=== PATIENT | male | born 1975 | race Caucasian/White ===

== ENCOUNTER 2017-11-14 16:01 | Emergency (ER) | payer SELFPAY ==
[~2017-11-14] VITALS: Ht 190.5 cm; Wt 181.4 kg
[~2017-11-14 16:01] MED LIST: ATEN100T PO; BENA20TA9 PO
--- NOTE | 2017-11-14 16:10 | NUR ---
PT PRESENTED TO THE ER WITH A C/O MID STERNAL CP. PT STATED THAT IT FEELS LIKE TIGHTNESS AND HAS MORE DISCOMFORT WITH INSPIRATION. PT STATED THAT IT STARTED 1 HR DOCK HAND. PT IS ALSO C/O LUE ARM PAIN X 1 HR. PT IS ON THE MONITOR AND CONTINUOUS PULSE OX.
[2017-11-14 16:55] LABS: BASOPHILS # (AUTO) 0.1 /CMM (0.0-0.2); BASOPHILS % (AUTO) 0.7 % (0.0-2.0); EOSINOPHILS % (AUTO) 2.8 % (0.0-6.0); HEMATOCRIT 50 % (39-51); HEMOGLOBIN 17.8 g/dL (13.5-17.5); LYMPHOCYTES # (AUTO) 2.9 /CMM (0.8-4.8); LYMPHOCYTES % (AUTO) 29.3 % (20.0-44.0); MEAN CORPUSCULAR HGB CONC 36 g/dl (31.0-36.0); MEAN CORPUSCULAR VOLUME 88 fL (80-96); MONOCYTES # (AUTO) 1.1 /CMM (0.1-1.30); MONOCYTES % (AUTO) 10.6 % (2.0-12.0); NEUTROPHILS # (AUTO) 5.6 /CMM (1.8-8.9); NEUTROPHILS % (AUTO) 56.6 % (43.0-81.0); PLATELET COUNT (AUTO) 255 /CMM (150-450); RDW COEFFICIENT OF VARIATION 12.9 (11.5-15.0); RED BLOOD CELL COUNT(AUTO) 5.65 MIL/uL (4.5-6.0)
[2017-11-14 17:04] LABS: CALCIUM, SERUM 8.8 mg/dL (8.5-10.1); CARBON DIOXIDE 27 mmol/L (21-32); CHLORIDE 99 mmol/L (98-107); CREATININE 1.1 mg/dL (0.6-1.3); GLUCOSE 94 mg/dL (74-106); SODIUM SERUM 135 mmol/L (136-145); UREA NITROGEN, BLOOD 15 mg/dL (7-18)
[2017-11-14 17:08] LABS: INR 0.93 (0.85-1.15)
[2017-11-14 17:10] LABS: ALANINE AMINOTRANSFERASE 39 U/L (12-78); ALBUMIN 3.8 g/dL (3.4-5.0); ALKALINE PHOSPHATASE 47 U/L (46-116); ASPARTATE AMINOTRANSFERASE 27 U/L (15-37); BILIRUBIN,TOTAL 0.2 mg/dL (0.2-1.0); TOTAL PROTEIN, SERUM 8.4 g/dL (6.4-8.2)
[2017-11-14] MEDS ORDERED: NITROGLYCERIN PACKET 1 GM PACKET ONE (17:10)
[2017-11-14] MEDS ORDERED: ENALAPRILAT DIHYD. (2.5MG/ML) 1.25 MG/ML VIAL IV ONE ×2 (17:10→17:30)
[2017-11-14] MEDS ORDERED: ASPIRIN 325 MG TABLET ONE (17:10)
[2017-11-14 17:14] LABS: TROPONIN I < 0.017 ng/mL (0.00-0.056)
[2017-11-14] MEDS ORDERED: NITROGLYCERIN PACKET 1 GM PACKET TD ONE (17:30)
[2017-11-14] MEDS ORDERED: ASPIRIN 325 MG TABLET PO ONE (17:30)
--- NOTE | 2017-11-14 18:24 | NUR ---
IV removed. Catheter intact and site benign. Pressure and 4x4 applied to site. No bleeding noted.Patient discharged to home in stable condition. Written and verbal after care instructions given. Patient verbalizes understanding of instruction AND RX. PT'S VSS. PT AMBULATED OUT WITH A STEADY GAIT. PT'S IS DRIVING PT HOME.
[2017-11-14 18:25] VITALS: BP 133/88
== END 2017-11-14 18:30 | disposition home or self-care (01) ==
LOC: ER 16:06
DX: R07.89 Other chest pain (principal); I10 Essential (primary) hypertension
CPT/HCPCS: 36415; 71045-TC; 80048-TC; 80076-TC; 84484-TC; 85025-TC; 85730-TC; A4606; J3490; Z7610

== ENCOUNTER 2017-12-05 07:03 | Emergency (ER) | payer MEDICAID ==
[~2017-12-05] VITALS: Ht 193 cm; Wt 174.6 kg
[2017-12-05 07:08] VITALS: BP 213/142
== END 2017-12-05 07:48 | disposition home or self-care (01) ==
LOC: ER 07:05
DX: I10 Essential (primary) hypertension (principal)
CPT/HCPCS: A4606; Z7610

== ENCOUNTER 2018-06-28 18:43 | Emergency (ER) | payer SELFPAY ==
--- NOTE | 2018-06-28 19:14 | NUR ---
CALLED IN [facility], NO RESPONSE
--- NOTE | 2018-06-28 19:29 | NUR ---
CALLED IN [facility], NO RESPONSE
--- NOTE | 2018-06-28 19:41 | NUR ---
CALLED IN [facility], NO RESPONSE
--- NOTE | 2018-06-28 19:54 | NUR ---
CALLED PT IN [facility], PT STATES "NO IT'S ALRIGHT, THANK YOU" DECLINES TRIAGE ASSESSMENT OR ER PROVIDER EVALUATION.
== END 2018-06-28 19:55 | disposition home or self-care (01) ==
LOC: ER 18:45
DX: Z53.21 Procedure and treatment not carried out due to patient leaving prior to being seen by health care provider (principal)

== ENCOUNTER 2022-07-04 03:57 | Inpatient (IN) | payer MEDICAID ==
[~2022-07-04] VITALS: Ht 193 cm; Wt 204.1 kg
[2022-07-04 05:00] LABS: BASOPHILS # (AUTO) 0.1 K/uL (0.0-0.2); BASOPHILS % (AUTO) 0.6 % (0.0-2.0); EOSINOPHILS % (AUTO) 5.7 % (0.0-6.0); HEMATOCRIT 48 % (39-51); HEMOGLOBIN 15.8 g/dL (13.5-17.5); LYMPHOCYTES # (AUTO) 1.7 K/uL (0.8-4.8); LYMPHOCYTES % (AUTO) 13.1 % (20.0-44.0); MEAN CORPUSCULAR HGB CONC 33 g/dl (31.0-36.0); MEAN CORPUSCULAR VOLUME 90 fL (80-96); MONOCYTES % (AUTO) 7.3 % (2.0-12.0); NEUTROPHILS # (AUTO) 9.6 K/uL (1.8-8.9); NEUTROPHILS % (AUTO) 73.3 % (43.0-81.0); PLATELET COUNT (AUTO) 231 K/uL (150-450); WHITE BLOOD COUNT (AUTO) 13.1 K/uL (4.3-11.0)
[2022-07-04 05:12] LABS: CALCIUM, SERUM 8.4 mg/dL (8.5-10.1); CREATININE 1.2 mg/dL (0.6-1.3); POTASSIUM 3.6 mmol/L (3.5-5.1)
[2022-07-04 05:26] LABS: ALBUMIN 3.1 g/dL (3.4-5.0); BILIRUBIN,TOTAL 0.6 mg/dL (0.2-1.0); TOTAL PROTEIN, SERUM 6.9 g/dL (6.4-8.2)
[2022-07-04] MEDS ORDERED: FUROSEMIDE 40 MG/4 ML VIAL IV ONE (06:00)
[2022-07-04] MEDS ORDERED: ONDANSETRON HCL/PF 4 MG/2 ML VIAL IM ONE (06:00)
[2022-07-04] MEDS ORDERED: ONDANSETRON HCL/PF 4 MG/2 ML VIAL ONE (06:04)
[2022-07-04] MEDS ORDERED: FUROSEMIDE 40 MG/4 ML VIAL ONE (06:04)
[2022-07-04] MEDS ORDERED: NITROGLYCERIN PATCH 0.2 MG/HR PATCH.TD24 TD SCH (06:30)
--- NOTE | 2022-07-04 07:15 | NUR ---
[facility] SWAB COLLECTED AND SENT TO LAB. PATIENT'S BELONGINGS LIST DONE.
--- NOTE | 2022-07-04 07:15 | NUR ---
RECEIVED PT FROM [facility] NO SOB OR CHEST PAIN
--- NOTE | 2022-07-04 08:05 | NUR ---
MOVE SHEET SUBMITTED
[2022-07-04] MEDS ORDERED: ATENOLOL 50 MG TABLET PO ONE (09:00)
[2022-07-04] MEDS ORDERED: BENAZEPRIL HCL 10 MG TABLET PO ONE (09:00)
[2022-07-04] MEDS ORDERED: ATENOLOL 50 MG TABLET ONE (09:55)
[2022-07-04] MEDS ORDERED: BENAZEPRIL HCL 10 MG TABLET ONE (09:56)
[2022-07-04] MEDS ORDERED: hydrALAZINE HCL 50 MG TABLET ONE (10:18)
[2022-07-04] MEDS ORDERED: ENOXAPARIN SODIUM 40 MG/0.4 ML DISP.SYRIN SQ ONE (10:18)
[2022-07-04] MEDS ORDERED: FUROSEMIDE 100 MG/10 ML VIAL ONE (10:18)
[2022-07-04] MEDS ORDERED: BENAZEPRIL HCL 20 MG TABLET ONE (10:19)
[2022-07-04] MEDS ORDERED: ASPIRIN EC 81 MG TABLET.DR PO ONE (10:19)
[2022-07-04 10:22] LABS: THYROID STIMULATING HORMONE 1.489 uIU/mL (0.358-3.74)
[2022-07-04] MEDS ORDERED: MORPHINE SULFATE INJ 4 MG/ML DISP.SYRIN IM PRN (10:30)
[2022-07-04] MEDS ORDERED: hydrALAZINE HCL IV 20 MG VIAL IV PRN (10:30)
[2022-07-04] MEDS: FUROSEMIDE 100 MG/10 ML VIAL IV SCH ×3 (10:53→17:15)
[2022-07-04] MEDS: hydrALAZINE HCL 50 MG TABLET PO SCH ×3 (10:55→16:16)
[2022-07-04] MEDS: BENAZEPRIL HCL 20 MG TABLET PO SCH (10:55)
[2022-07-04] MEDS: ASPIRIN 81 MG TAB.CHEW PO SCH (10:55)
[2022-07-04] MEDS: ENOXAPARIN SODIUM 40 MG/0.4 ML DISP.SYRIN SQ SCH (10:58)
--- NOTE | 2022-07-04 11:00 | NUR ---
RINKU C/O SOB FOR THE PAST FEW DAYS FELT WORSE THIS AM.
--- NOTE | 2022-07-04 12:04 | NUR ---
Room Assigned 108-1
--- NOTE | 2022-07-04 12:17 | NUR ---
REPORT GIVEN TO GIANFRANCO TORRES RN ROOM 108 FOR SADIA
--- NOTE | 2022-07-04 12:35 | NUR ---
TELE ADMISSION RN NOTES RECEIVED PATIENT FROM ED VIA DAVID, AT THE BEDSIDE, ALERT AND VERBALLY RESPONSIVE, PATIENT C/O OF PAIN AT THE IV SITE ON LEFT AC,REMOVED IV LINE DUE TO NOT FLUSHING, WILL REINSERT A NEW ONE. NOTED SOB, ON 4L 02 VIA NASAL CANNULA SATING AT 97%, PATIENT PREFERRED TO SIT ON HIGH FOWLERS POSITION. NOTED RLE +3 PITTING EDEMA, AND LLE +2 PITTING EDEMA. NOTED RED RASHES ON RIGHT LOWER LEG, NO DRAINAGE NOTED, NOT ITCHY. PATIENT ABLE TO AMBULATE TO THE BATHROOM. PLACED TELE MONITOR NOTED WITH READING OF SR HR 73. ORIENTED TO THE USE OF CALL LIGHT, BED IN LOWEST POSITION. CALL LIGHT WITHIN REACH. ORDERED LUNCH FOR THE PATIENT. PLAN OF CARE CONTINUE.
[2022-07-04] MEDS: ACETAMINOPHEN 650 MG/20.3 ML UDC NG PRN (13:02)
[2022-07-04] MEDS: METOPROLOL TARTRATE 50 MG TABLET PO SCH ×2 (13:03→17:49)
--- NOTE | 2022-07-04 13:53 | NUR ---
PATIENT C/O OF HEADACHE PRN TYLENOL GIVEN. NOTED BP 158/75, DUE HYDRALAZINE AND METOPROLOL GIVEN. BLE ELEVATED WITH PILLOWS. PLAN OF CARE CONTINUE.
--- NOTE | 2022-07-04 15:22 | NUR ---
PATIENT C/O OF NAUSEA, NO VOMITING NOTED, NO C/O OF HEADACHE, NO C/O OF CHEST PAIN AT THIS MOMENT. BP 123/73 HR 76, INFORMED DR. COVINGTON WITH ORDER ZOFRAN 4MG Q4HR PRN, NOTED AND CARRIED OUT. PLAN OF CARE CONTINUE.
[2022-07-04] MEDS: ONDANSETRON HCL/PF 4 MG/2 ML VIAL IV PRN (16:15)
[2022-07-04 17:00] VITALS: BP 127/73
--- NOTE | 2022-07-04 18:40 | NUR ---
PATIENT COMPLAINED OF HEADACHE AND NAUSEA EVEN AFTER GIVING TYLENOL AND ZOFRAN, GIVEN ICE CHIPS AND ENCOURAGED TO SIT UPRIGHT, STILL C/O OF HEADACHE AND NAUSEA,DENIES CHEST PAIN. NOTIFIED DOCTOR ADRIA WITH NEW ORDER TO D/C NITROPATCH, MYLANTA 10ML Q6HR PRN, NOTED AND CARRIED OUT.
--- NOTE | 2022-07-04 18:48 | NUR ---
TELE CLOSING RN NOTES PATIENT NOTED SLEEPING IN BED, ALERT AND VERBALLY RESPONSIVE WHEN AWAKEN, ON 2L 02 VIA NASAL CANNULA SATING AT 97%, BLE PITTING EDEMA STILL NOTED. NOTED RED RASHES ON RIGHT LOWER LEG, NO DRAINAGE NOTED, NOT ITCHY. PATIENT ABLE TO AMBULATE TO THE BATHROOM. PLACED TELE MONITOR NOTED WITH READING OF SR HR 75.OUTPUT IS 1150ML YELLOW URINE. USES THE URINAL. BED IN LOWEST POSITION. CALL LIGHT WITHIN REACH.WILL ENDORSE TO NIGHT NURSE FOR SADIA.
[2022-07-04] MEDS ORDERED: MAG HYDROX/AL HYDROX/SIMETH 30 ML UDC PO PRN (19:00)
--- NOTE | 2022-07-04 19:30 | NUR ---
SUPERVISOR DRYING AND WINDING OPENING NOTES - RECEIVED PATIENT ASLEEP, EASY TO AROUSE. BED IN HIGH CASTREJON'S. A/O X4. BREATHING EVEN AND NON-LABORED, ON HUMIDIFIED O2 AT 2LPM VIA NASAL CANULA. NOT IN APPARENT DISTRESS. DENIES PAIN AT THIS TIME. ON TELE MONITOR READING SINUS RHYTHM AT 75 BPM. HAS RIGHT HAND IV ACCESS #22G AND SALINE LOCKED. NO S/S OF INFILTRATION NOTED. SAFETY PRECAUTIONS IN PLACE: BED LOCKED AND IN LOW POSITION, SIDE RAILS UP X2, CALL LIGHT WITHIN REACH. WILL CONTINUE PLAN OF CARE.
[2022-07-04 20:00] VITALS: BP 145/70
[2022-07-05] VITALS: BP 112/71
[2022-07-05] MEDS: METOPROLOL TARTRATE 50 MG TABLET PO SCH ×4 (00:18→18:00)
--- NOTE | 2022-07-05 00:20 | NUR ---
NOTIFIED HOSPITALIST LA THAT PATIENT HAS NO ADMISSION ORDERS YET. AWAITING FOR MD ORDER.
[2022-07-05 04:00] VITALS: BP 139/99
--- NOTE | 2022-07-05 06:53 | NUR ---
INTERNAL CONTROLS SPECIALIST CLOSING NOTES - PATIENT SLEEPING IN BED, EASY TO AROUSE. NO SOB OR NOTED. SATURATING AT 97% ON O2 AT 2LPM. NOT IN CARDIAC OR RESPIRATORY DISTRESS. NO C/O PAIN OR DISCOMFORT AT THIS TIME. AFEBRILE. ON TELE MONITOR READING SINUS RHYTHM AT 72 BPM. RIGHT HAND IV ACCESS #22G INTACT, PATENT AND FLUSHING. ALL DUE MEDS GIVEN AND NEEDS ATTENDED. SAFETY PRECAUTIONS MAINTAINED. WILL ENDORSE TO NEXT SHIFT FOR CONTINUITY OF CARE.
--- NOTE | 2022-07-05 07:20 | NUR ---
AM TELE OPENING NOTES: RECEIVED PATIENT IN BED AWAKE,. ALERT, ORIENTED X 4. ON OXYGEN @ 2L/MIN VIA N/C WITH OXYGEN SATURATION OF 96%. NO RESPIRATORY DISTRESS NOTED AT THIS TIME. ON SR WITH HR OF 69 PER TELE MONITOR. HAS IV ACCESS ON RIGHT HAND, PATENT, INTACT AND FLUSHES WELL, SITE WITH NO S/S INFILTRATION NOTED. NO C/O PAIN OR DISCOMFORT AT THIS TIME. ALL SAFETY MEASURES IN PLACE. BED LOCKED AND IN LOWEST POSITION. CALL LIGHT WITHIN REACH AND INFORMED PATIENT TO CALL NEEDED. WILL CONTINUE TO MONITOR PATIENT THROUGHOUT SHIFT.
[2022-07-05 07:26] LABS: BASOPHILS % (AUTO) 0.1 % (0.0-2.0); EOSINOPHILS % (AUTO) 1.8 % (0.0-6.0); HEMATOCRIT 47 % (39-51); HEMOGLOBIN 15.1 g/dL (13.5-17.5); LYMPHOCYTES # (AUTO) 1.7 K/uL (0.8-4.8); LYMPHOCYTES % (AUTO) 15.4 % (20.0-44.0); MEAN CORPUSCULAR HGB CONC 32 g/dl (31.0-36.0); MEAN CORPUSCULAR VOLUME 90 fL (80-96); MONOCYTES # (AUTO) 0.8 K/uL (0.1-1.30); MONOCYTES % (AUTO) 7.3 % (2.0-12.0); NEUTROPHILS # (AUTO) 8.6 K/uL (1.8-8.9); NEUTROPHILS % (AUTO) 75.4 % (43.0-81.0); PLATELET COUNT (AUTO) 281 K/uL (150-450); RED BLOOD CELL COUNT(AUTO) 5.16 MIL/uL (4.5-6.0); WHITE BLOOD COUNT (AUTO) 11.4 K/uL (4.3-11.0)
[2022-07-05 07:48] LABS: ALBUMIN 2.9 g/dL (3.4-5.0); BILIRUBIN,TOTAL 0.7 mg/dL (0.2-1.0); CALCIUM, SERUM 8.1 mg/dL (8.5-10.1); CREATININE 1.3 mg/dL (0.6-1.3); MAGNESIUM 1.8 mg/dL (1.8-2.4); PHOSPHORUS 3.8 mg/dL (2.5-4.9); POTASSIUM 3.4 mmol/L (3.5-5.1); TOTAL PROTEIN, SERUM 6.8 g/dL (6.4-8.2)
[2022-07-05 08:00] VITALS: BP 120/83
[2022-07-05] MEDS: hydrALAZINE HCL 50 MG TABLET PO SCH ×3 (08:24→16:38)
[2022-07-05] MEDS: BENAZEPRIL HCL 20 MG TABLET PO SCH (08:24)
[2022-07-05] MEDS: ASPIRIN 81 MG TAB.CHEW PO SCH (08:24)
[2022-07-05] MEDS: ACETAMINOPHEN 650 MG/20.3 ML UDC NG PRN (08:45)
[2022-07-05] MEDS ORDERED: ACETAMINOPHEN 325 MG TABLET PO PRN (09:00)
[2022-07-05] MEDS: ENOXAPARIN SODIUM 40 MG/0.4 ML DISP.SYRIN SQ SCH (09:42)
[2022-07-05] MEDS ORDERED: POTASSIUM CHLORIDE 20 MEQ TAB.PRT.SR PO ONE (10:00)
[2022-07-05] MEDS: ONDANSETRON HCL/PF 4 MG/2 ML VIAL IV PRN (10:38)
[2022-07-05 12:00] VITALS: BP 135/87
[2022-07-05 16:00] VITALS: BP 132/60
--- NOTE | 2022-07-05 19:29 | NUR ---
HYDROLOGY TECHNICIAN CLOSING NOTES: PATENT IN BED, AWAKE, ALERT ORIENTED X 4 AND WATCHING TELEVISION AT THIS TIME. NO RESPIRATORY DISTRESS NOTED THE ENTIRE SHIFT.. PATIENT C/O MINIMAL HEADACHE AT THIS TIME, MED GIVEN PREVIOUSLY WAS EFFECTIVE. NO NAUSEA AND DIZZINESS NOTED AT THIS TIME. WILL ENDORSE TO NEXT SHIFT NURSE FOR CONTINUITY OF CARE.
--- NOTE | 2022-07-05 19:30 | NUR ---
FORMING MACHINE ADJUSTER OPENING NOTE RECEIVED PT AWAKE IN BED. A/O X1 AND SLOVENIAN SPEAKING ONLY. PT ON O2 @ 2LPM VIA NC, TOLERATING WELL. NO SOB OR S/S OF RESPIRATORY DISTRESS. BREATHING EVEN AND UNLABORED. ON EXTERNAL STEAMFITTER APPRENTICE READING SR 76 BPM. IV ACCESS R HAND 22G, INTACT AND PATENT. SAFETY PRECAUTIONS IN PLACE. BED IN LOWEST LOCKED POSITION, HOB ELEVATED, SIDE RAILS UP X3, AND CALL LIGHT AND TABLE WITHIN REACH. ALL NEEDS MET AT THIS TIME. Addendum: 07/05/22 at 2215 by YAKOV CUMMINS RN A/OX4 AND ABLE TO MAKE NEEDS KNOWN.*
[2022-07-05 20:00] VITALS: BP 126/70
[2022-07-06] VITALS: BP 132/86
[2022-07-06] MEDS: METOPROLOL TARTRATE 50 MG TABLET PO SCH ×4 (00:20→17:12)
--- NOTE | 2022-07-06 01:22 | NUR ---
RN NOTE PT REQUESTED MORPHINE ROUTE CHANGE FROM IM TO IV. INFORMED DR TOVAR OF PT REQUEST WITH NEW ORDER FOR MORPHINE 4 MG IV Q4H PRN FOR SEVERE PAIN. ORDER NOTED AND CARRIED OUT.
--- NOTE | 2022-07-06 01:37 | NUR ---
RN NOTE PT COMPLAINED OF MIGRAINE 03/06. ADMINISTERED MORPHINE 4 MG IV FOR SEVERE PAIN ORDERED. PROVIDED COLD CLOTH AND ICE CHIPS FOR COMFORT. MADE COMFORTABLE IN BED. ALL NEEDS MET AT THIS TIME.
[2022-07-06] MEDS ORDERED: MORPHINE SULFATE INJ 4 MG/ML DISP.SYRIN IV PRN (02:30)
[2022-07-06 04:00] VITALS: BP 142/83
[2022-07-06 06:23] LABS: CALCIUM, SERUM 8.3 mg/dL (8.5-10.1); CREATININE 1.1 mg/dL (0.6-1.3); POTASSIUM 4.4 mmol/L (3.5-5.1)
[2022-07-06 06:29] LABS: BASOPHILS % (AUTO) 0.1 % (0.0-2.0); EOSINOPHILS % (AUTO) 0.4 % (0.0-6.0); HEMATOCRIT 48 % (39-51); HEMOGLOBIN 15.6 g/dL (13.5-17.5); LYMPHOCYTES # (AUTO) 1.5 K/uL (0.8-4.8); LYMPHOCYTES % (AUTO) 12.5 % (20.0-44.0); MEAN CORPUSCULAR HGB CONC 33 g/dl (31.0-36.0); MEAN CORPUSCULAR VOLUME 91 fL (80-96); MONOCYTES # (AUTO) 0.8 K/uL (0.1-1.30); MONOCYTES % (AUTO) 6.9 % (2.0-12.0); NEUTROPHILS # (AUTO) 9.8 K/uL (1.8-8.9); NEUTROPHILS % (AUTO) 80.1 % (43.0-81.0); PLATELET COUNT (AUTO) 269 K/uL (150-450); RED BLOOD CELL COUNT(AUTO) 5.25 MIL/uL (4.5-6.0); WHITE BLOOD COUNT (AUTO) 12.3 K/uL (4.3-11.0)
--- NOTE | 2022-07-06 06:32 | NUR ---
PRODUCTION POSTING CLERK CLOSING NOTE PT AWAKE IN BED. A/O X4 AND ABLE TO MAKE NEEDS KNOWN. PT ON O2 @ 2LPM VIA NC, TOLERATING WELL. NO SOB OR S/S OF RESPIRATORY DISTRESS. BREATHING EVEN AND UNLABORED. ON EXTERNAL BINGO CALLER READING JUNCTIONAL AND SR 84 BPM. IV ACCESS R HAND 22G, INTACT AND PATENT. ALL DUE MEDS GIVEN ORDERED. SAFETY PRECAUTIONS IN PLACE AT ALL TIMES. BED IN LOWEST LOCKED POSITION, HOB ELEVATED, SIDE RAILS UP X3, AND CALL LIGHT AND TABLE WITHIN REACH. ALL NEEDS MET AT THIS TIME AND WILL ENDORSE TO ONCOMING NURSE FOR SADIA.
--- NOTE | 2022-07-06 07:15 | NUR ---
RN OPEN NOTE RECEIVED PT AWAKE IN BED. A/O X4 PT ON O2 @ 2LPM VIA NC, O2 SAT 96 % ,TOLERATING WELL. NO SOB OR S/S OF RESPIRATORY DISTRESS. BREATHING EVEN AND UNLABORED. ON EXTERNAL HARNESS BUILDER READING SR 78 BPM. IV ACCESS R HAND 22G, INTACT AND PATENT. SAFETY PRECAUTIONS IN PLACE. BED IN LOWEST LOCKED POSITION, HOB ELEVATED, SIDE RAILS UP X3, AND CALL LIGHT AND TABLE WITHIN REACH. WILL CONTINUE TO MONITOR
[2022-07-06 08:07] VITALS: BP 107/71
[2022-07-06] MEDS: ENOXAPARIN SODIUM 40 MG/0.4 ML DISP.SYRIN SQ SCH (08:23)
[2022-07-06] MEDS: BENAZEPRIL HCL 20 MG TABLET PO SCH (08:23)
[2022-07-06] MEDS: ASPIRIN 81 MG TAB.CHEW PO SCH (08:23)
[2022-07-06] MEDS: hydrALAZINE HCL 50 MG TABLET PO SCH ×3 (08:24→16:16)
[2022-07-06] MEDS: ONDANSETRON HCL/PF 4 MG/2 ML VIAL IV PRN (08:32)
[2022-07-06] MEDS ORDERED: FURO-145 PO (09:39)
[2022-07-06] MEDS ORDERED: ATEN100T PO (09:39)
[2022-07-06] MEDS ORDERED: BENA20TA9 PO (09:39)
[2022-07-06] MEDS ORDERED: NIFE-35 PO (09:39)
[2022-07-06] MEDS ORDERED: HYDROCHLOROTHIAZIDE 25 MG TABLET PO SCH (10:00)
--- NOTE | 2022-07-06 12:12 | NUR ---
RN NOTE LOPRESSOR AND HYDRALAZINE WASENT GIVEN BECAUSE PATIENT HAS LOW BP 107/71 HR 69
[2022-07-06 12:13] VITALS: BP 107/71
[2022-07-06 16:12] VITALS: BP 137/75
[2022-07-06 17:12] VITALS: BP 137/75
--- NOTE | 2022-07-06 17:40 | NUR ---
sport internship note PATINR IS AT STABLE HEALTH CONDITION ,ORDER TO DISCHARGE PATIENT FROM [facility] RECEIVED . DISCHARGE INSTRUCTIONS PROVIDED TO THE PATIENT VERBALLY AND IN WRITTEN . PATIENT VERBALIZED UNDERSTANDING .PATIENT IS DISCHARGED FROM [facility] OF TODAY
== END 2022-07-06 18:47 | disposition home or self-care (01) | DRG 194 ==
LOC: ER 04:09 → TRANSITION 09:35 → TELE1 12:45
PROVIDERS: ADMIT Internal Medicine; ATTEND Internal Medicine
DX: I11.0 Hypertensive heart disease with heart failure (principal); J96.01 Acute respiratory failure with hypoxia; E44.0 Moderate protein-calorie malnutrition; E88.09 Other disorders of plasma-protein metabolism, not elsewhere classified; Z68.43 Body mass index [BMI] 50.0-59.9, adult; I27.20 Pulmonary hypertension, unspecified; I50.23 Acute on chronic systolic (congestive) heart failure; I16.0 Hypertensive urgency; E11.9 Type 2 diabetes mellitus without complications; F17.210 Nicotine dependence, cigarettes, uncomplicated; G47.33 Obstructive sleep apnea (adult) (pediatric); Z20.822 Contact with and (suspected) exposure to COVID-19; E66.01 Morbid (severe) obesity due to excess calories
CPT/HCPCS: 36415; 71045-TC; 80048-TC; 80053-TC; 80061-TC; 82962-TC; 83735-TC; 83880; 84100-TC; 84439-TC; 84443-TC; 84484-TC; 85025-TC; 87081-TC; 93307-TC; 93970-TC; C9803; G0378; J1650; J1940; J2270; J2405

== ENCOUNTER 2022-08-06 09:17 | Emergency (ER) | payer MEDICAID ==
[~2022-08-06] VITALS: Ht 193 cm; Wt 181.4 kg
[~2022-08-06 09:17] MED LIST changes: +FURO-145 PO; +NIFE-35 PO
[2022-08-06 09:25] VITALS: BP 158/101
[2022-08-06] MEDS ORDERED: ATEN100T PO (09:30)
[2022-08-06] MEDS ORDERED: FURO20TA4 PO (09:30)
[2022-08-06] MEDS ORDERED: BENA20TA9 PO (09:30)
--- NOTE | 2022-08-06 09:42 | NUR ---
Patient discharged to home in stable condition. Written and verbal after care instructions given. Patient verbalizes understanding of instruction.
== END 2022-08-06 09:42 | disposition home or self-care (01) ==
LOC: ER 09:26
DX: I10 Essential (primary) hypertension (principal); E11.9 Type 2 diabetes mellitus without complications; F17.200 Nicotine dependence, unspecified, uncomplicated; Z79.899 Other long term (current) drug therapy

== ENCOUNTER 2023-03-10 20:08 | Emergency (ER) | payer MEDICAID, OTHER ==
[~2023-03-10] VITALS: Ht 193 cm; Wt 174.6 kg
[~2023-03-10 20:08] MED LIST changes: +FURO20TA4 PO
[2023-03-10] MEDS ORDERED: KETOROLAC TROMETHAMINE INJ 30 MG/ML VIAL IV ONE (21:30)
[2023-03-10] MEDS ORDERED: FENTANYL PF 100MCG/2ML AMPUL IV ONE (21:30)
[2023-03-10] MEDS ORDERED: KETOROLAC TROMETHAMINE INJ 30 MG/ML VIAL ONE (21:46)
[2023-03-10] MEDS ORDERED: FENTANYL PF 100MCG/2ML AMPUL ONE (21:46)
[2023-03-10] MEDS ORDERED: HYDR-3976 GT (22:38)
[2023-03-10] MEDS ORDERED: IBUP-1955 PO (22:40)
[2023-03-10 23:54] VITALS: BP 173/102; TEMP 98.1; O2SAT 98
== END 2023-03-10 23:55 | disposition home or self-care (01) ==
LOC: ER 20:18
DX: S82.091A Other fracture of right patella, initial encounter for closed fracture (principal); I10 Essential (primary) hypertension; E78.00 Pure hypercholesterolemia, unspecified; E11.9 Type 2 diabetes mellitus without complications; F17.200 Nicotine dependence, unspecified, uncomplicated; W01.0XXA Fall on same level from slipping, tripping and stumbling without subsequent striking against object, initial encounter; Y93.89 Activity, other specified; Y92.89 Other specified places as the place of occurrence of the external cause; Y99.8 Other external cause status
CPT/HCPCS: 99285; 96374; 29505; 73700; 96375; 73564; J3010; J1885